=== PATIENT | female | born 2005 | race Caucasian/White ===

== ENCOUNTER 2024-04-14 14:29 | Emergency (ER) | payer MEDICAID ==
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
[2024-04-14 14:59] VITALS: PULSE 83; TEMP 98.7
[2024-04-14] MEDS ORDERED: XYLOCAINE VISCOUS 2% 15 ML CUP ONE (15:29)
[2024-04-14] MEDS ORDERED: PROTONIX 40 MG IV IV ONE (15:29)
[2024-04-14] MEDS ORDERED: MAALOX ES 30 ML UNIT DOSE ONE (15:29)
[2024-04-14 15:31] LABS: Absolute Neutrophil Ct (ANC) 6.38 x10^3/uL (1.4-6.9); BASOPHIL % 0.3 % (0.0-0.4); Basophil (Absolute #) 0.03 x10^3/uL (0-0.4); Eosinophil % 0.2 % (0.00-5.0); Eosinophil (Absolute #) 0.02 x10^3/uL (0-0.5); Hematocrit 36.9 % (35-47); Hemoglobin 12.4 g/dL (12.0-16.0); IMMATURE GRAN # 0.02 x10^3u/L (0.00-0.03); IMMATURE GRAN % 0.2 % (0.00-0.4); Lymphocyte (Absolute #) 1.76 x10^3/uL (1.0-4.6); Lymphocytes % 20.3 % (24.0-44.0); Mean Corpuscular Hemoglobin 28.9 pg (26-32); Mean Corpuscular Hgb Concent. 33.6 g/dL (32-36); Mean Platelet Volume 9.3 fL (7.5-11.0); Monocyte (Absolute #) 0.46 x10^3/uL (0.0-1.3); Monocytes % 5.3 % (0.0-12.0); Neutrophil % 73.7 % (36.0-66.0); Platelet Count 333 x10^3/uL (150-450); Red Blood Count 4.29 x10^6/uL (4.1-5.4); Red Cell Distribution Width 13.7 % (11.5-14.0); White Blood Count 8.7 x10^3/uL (4.0-10.5)
[2024-04-14] MEDS: PROTONIX 40 MG IV IV ONE (15:31)
[2024-04-14 15:32] LABS: Appearance Clear (Clear); Bacteria Rare /HPF (None Seen); Bilirubin Negative (Negative); Blood Negative (Negative); Epithelial Cells None Seen /HPF (None Seen); Glucose, Urine Negative (Negative); Hyaline Casts NONE SEEN /LPF (0-2); Ketones Negative (Negative); Leukocyte Esterase Negative (Negative); Nitrite Negative (Negative); Ph 7.5 (4.6-8.0); Protein,Urine Dip Negative (Negative); RBC 0-2 /HPF (0-5); Specific Gravity 1.015 (1.005-1.030); WBC 0-2 /HPF (0-5)
[2024-04-14] MEDS: GI COCKTAIL 45 ML (Maalox/Lidocaine) PO ONE (15:32)
[2024-04-14 15:38] LABS: ADD URINE CULTURE? NO (NO)
[2024-04-14 15:50] LABS: ALBUMIN 4.7 g/dL (3.5-5.0); ANION GAP 11.2 MEQ/L (5-15); BILIRUBIN,TOTAL 0.6 mg/dL (0.2-1.3); Calcium 9.9 mg/dL (8.4-10.2); Creatinine 1 0.77 mg/dL (0.52-1.04); EST GLOMERULAR FILTRATION RATE 113.2 ML/MIN; Potassium 4.3 mmol/L (3.5-5.1); Total Protein 7.8 g/dL (6.3-8.2)
[2024-04-14 15:56] LABS: HCG SERUM TEST NEGATIVE (NEGATIVE)
[2024-04-14 17:24] VITALS: BP 100/64; O2SAT 99
--- NOTE | 2024-04-14 23:07 | XRAY ---
Indication: Epigastric pain. Multiple contiguous axial images obtained through abdomen and pelvis without contrast. Comparison: None Lung bases clear. Heart is not enlarged. Stomach mildly distended with food/fluid. Noncontrast stomach and bowel loops appear nonobstructed with normal appendix. No free fluid/air. Remaining liver, gallbladder, pancreas, spleen, adrenal glands, kidneys, ureters, bladder, uterus, and aorta are unremarkable for noncontrast exam. Osseous structures intact. No ventral or inguinal hernias. Impression: Negative CT abdomen/pelvis without contrast exam.
== END 2024-04-14 17:42 | disposition home or self-care (01) ==
LOC: ED 14:29
DX: R10.13 Epigastric pain (principal)
CPT/HCPCS: 36000; 36415; 74176; 80053; 81001; 82150; 83690; 84703; 85025; 96374; 99284; A9270-GY